=== PATIENT | female | born 1955 ===

== ENCOUNTER 2016-05-31 12:52 | Outpatient (CLI) | payer MEDICARE ==
--- NOTE | 2016-06-01 10:50 | Fluoroscopy Report ---
MODIFIED BARIUM SWALLOW: A modified barium swallow was performed with the aid of the speech pathologist. Fluoroscopic observation with multiple consistencies of barium was performed. Please see speech pathologist's notes for impression.
== END 2016-05-31 12:53 | disposition home or self-care (01) ==
LOC: PT 12:52
PROVIDERS: ATTEND Otolaryngology
DX: R13.10 Dysphagia, unspecified (principal)
CPT/HCPCS: 74230; 92611; G8996; G8997